=== PATIENT | female | born 1985 | race Caucasian/White ===

== ENCOUNTER 2016-11-17 21:17 | Emergency (ER) | payer MEDICAID ==
[~2016-11-17] VITALS: Ht 165.1 cm; Wt 88.5 kg
[~2016-11-17 21:17] MED LIST: CEPH-507 PO; DayQuil; Ibuprofen; LVT.1T PO; ONDA4TAB8 SL
--- OUTSIDE RECORDS SUMMARY | 2016-11-17 21:23 | XMS REPORT | Continuity of Care Document ---
Author Author [facility] Organization [facility] Address Unknown Phone Unavailable Care Team Providers Care Wordpress Developer Name Role Phone NO, LOCAL PHYSICIAN PCP Unavailable Insurance Providers Payer Name Policy Number Subscriber Name Relationship [facility] [employer] [id number] Celia Roca 18 Self / Same As Patient Advance Directives Directive Response Recorded Date/Time Advance Directives No 05/08/16 5:17pm Resuscitation Status Full Code 05/08/16 5:17pm Chief Complaint and Reason for Visit Chief Complaint Orthopedic Problems Reason for Visit [id number] Fall Problems Active Problems Medical Problem Onset Date Status Cervical sprain Unknown Acute Fall Unknown Acute Pain, chest wall Unknown Acute Medications Current Home Medications Medication Dose Units Route Directions Days/Qty Instructions Start Date Levothyroxine Sodium (Levothroid) 100 Mcg 100 Mcg Oral Daily Social History Social History Problem Response Recorded Date/Time Alcohol Use Denies Use 01/19/2014 8:41am Recreational Drug Use No 01/19/2014 8:41am Recent Foreign Travel No 05/08/2016 5:17pm Recent Infectious Disease Exposure No 05/08/2016 5:17pm Smoking Status Never a Smoker 05/08/2016 5:17pm Recent Hopitalizations No 05/08/2016 5:17pm Query Response Start Date Stop Date Smoking Status Never a Smoker Hospital Discharge Instructions No hospital discharge instructions. Plan of Care Discharge Date 05/08/16 6:35pm Disposition 01 HOME, SELF-CARE Condition at Discharge Improved Instructions/Education Provided Cervical Sprain (ED) Prescriptions See Medication Section Referrals NO,LOCAL PHYSICIAN - Primary Care Physician Functional Status No functional status results. Allergies, Adverse Reactions, Alerts No known allergies. Immunizations No immunization records. Vital Signs Acute Vital Signs Vital Response Date/Time Temperature (Fahrenheit) 98.6 degrees F (97.6 - 99.5) 05/08/2016 6:35pm Temperature (Calculated Celsius) 37.52839 degrees C (36.4 - 37.5) 05/08/2016 6:35pm Temperature Source Temporal 05/08/2016 6:35pm Pulse Rate (adult) 69 bpm (60 - 90) 05/08/2016 6:35pm Respiratory Rate 18 bpm (12 - 24) 05/08/2016 6:35pm O2 Sat by Pulse Oximetry 99 % (88 - 100) 05/08/2016 6:35pm Blood Pressure 113/71 mm Hg 05/08/2016 6:35pm Blood Pressure Mean 72 mm Hg 05/08/2016 5:17pm Pain Numeric Pain Scale 10-Worst Possible Pain 05/08/2016 5:17pm Height (Feet) 5 feet 05/08/2016 5:17pm Height (Inches) 5 inches 05/08/2016 5:17pm Height (Calculated Centimeters) 165.000463 cm 05/08/2016 5:17pm Weight (Pounds) 195 pounds 05/08/2016 5:17pm Weight (Calculated Kilograms) 88.747194 kilograms 05/08/2016 5:17pm Capillary Refill Capillary Refill Less Than 3 Seconds 05/08/2016 5:17pm Height 5 ft 5 in Weight 195 lb Body Mass Index 32.4 kg/m^2 Results No known relevant diagnostic tests, laboratory data and/or discharge summary. Procedures No known history of procedures. Encounters Encounter Location Arrival/Admit Date Discharge/Depart Date Attending Provider Departed Emergency Room [facility] 05/08/16 4:42pm 05/08 6:35pm MIGUE ORTIZ APRN Recent Diagnosis
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
[2016-11-17 21:39] LABS: BASOPHILS # (AUTO) 0.1 10^3/uL (0.0-0.1); BASOPHILS % (AUTO) 1 % (0-10); EOSINOPHILS # (AUTO) 0.6 10^3/uL (0.0-0.3); EOSINOPHILS % (AUTO) 6 % (0-10); LYMPHOCYTES # (AUTO) 3.8 X 10^3 (1.0-4.0); LYMPHOCYTES % (AUTO) 37 % (12-44); MEAN CORPUSCULAR HEMOGLOBIN 28 PG (25-34); MEAN CORPUSCULAR HGB CONC 33 G/DL (32-36); MEAN CORPUSCULAR VOLUME 86 FL (80-99); MEAN PLATELET VOLUME 10.7 FL (7.4-10.4); MONOCYTES # (AUTO) 0.6 X 10^3 (0.0-1.0); MONOCYTES % (AUTO) 6 % (0-12); NEUTROPHILS # (AUTO) 5.2 X 10^3 (1.8-7.8); NEUTROPHILS % (AUTO) 51 % (42-75); PLATELET COUNT 288 10^3/uL (130-400); RED BLOOD COUNT 4.61 10^6/uL (4.35-5.85); RED CELL DISTRIBUTION WIDTH 14.7 % (10.0-14.5); WHITE BLOOD COUNT 10.2 10^3/uL (4.3-11.0)
[2016-11-17 21:44] LABS: BILIRUBIN,URINE NEGATIVE (NEGATIVE); KETONES,URINE NEGATIVE (NEGATIVE); LEUKOCYTE ESTERASE ,URINE 1+ (NEGATIVE); NITRITE,URINE NEGATIVE (NEGATIVE); PH,URINE 6 (5-9); PROTEIN,URINE NEGATIVE (NEGATIVE); UROBILINOGEN,URINE NORMAL (NORMAL)
[2016-11-17 21:55] LABS: SQUAMOUS EPITHELIAL CELL,UR 25-50 /HPF
[2016-11-17 21:55] LABS: ALANINE AMINOTRANSFERASE 15 U/L (0-55); ALBUMIN 4.1 G/DL (3.2-4.5); ANION GAP 11 MMOL/L (5-14); ASPARTATE AMINO TRANSFERASE 21 U/L (5-34); BILIRUBIN,TOTAL 0.2 MG/DL (0.1-1.0); BLOOD UREA NITROGEN 8 MG/DL (7-18); BUN/CREATININE RATIO 11; CALCIUM 9.2 MG/DL (8.5-10.1); CARBON DIOXIDE 23 MMOL/L (21-32); CHLORIDE 105 MMOL/L (98-107); CREATININE SERUM 0.71 MG/DL (0.60-1.30); GFR ESTIMATED > 60; GLUCOSE 90 MG/DL (70-105); POTASSIUM 3.8 MMOL/L (3.6-5.0); SODIUM 139 MMOL/L (135-145); TOTAL PROTEIN 6.9 G/DL (6.4-8.2)
[2016-11-17 22:01] LABS: TROPONIN I < 0.30 NG/ML (<0.30)
[2016-11-17 22:22] VITALS: BP 108/72
== END 2016-11-17 22:21 | disposition home or self-care (01) ==
LOC: EDUNIT# 21:17 → ER 21:19
DX: R55 Syncope and collapse (principal); R06.00 Dyspnea, unspecified; R07.9 Chest pain, unspecified; I10 Essential (primary) hypertension; Z79.899 Other long term (current) drug therapy
CPT/HCPCS: 36415; 80053; 80306; 81000; 83880; 84484; 84703; 85025; 85379; 93005

== ENCOUNTER 2019-04-10 15:57 | Emergency (ER) | payer MEDICAID ==
[~2019-04-10] VITALS: Ht 165.1 cm; Wt 95.3 kg
--- OUTSIDE RECORDS SUMMARY | 2019-04-10 16:31 | XMS REPORT ---
Author COLLEEN Cuevas Organization [employer] Address Unknown Phone Unavailable Care Team Providers Care Quality Assurance Supervisor Final Name Role Phone COLLEEN HALL CP Unavailable Allergies No Known Allergies Problems No Known Problems Medications No Known Medications Vital Signs Date/Time: January 22, 2016 Cardiac Monitoring Heart Rate 72 bpm Temperature 98.1 F Weight 190 lbs Results No Known Results Summary Purpose [employer] Submission
--- OUTSIDE RECORDS SUMMARY | 2019-04-10 16:31 | XMS REPORT ---
Author Author SHAHRZAD [place] Organization [facility] Address [address] [place] [address] Care Team Providers Care Engineering Recruiter Name Role Phone RUSS NJNETTE Unavailable PROBLEMS Type Condition ICD9-CM Code [id number] Code Onset Dates Condition Status SNOMED Code Problem Hypothyroid E03.9 Active 94536775 Problem Heart murmur R01.1 Active 58878327 Problem Other headache syndrome G44.89 Active 969940953 Problem Other constipation K59.09 Active 843821736 Problem Gastroesophageal reflux disease without esophagitis K21.9 Active 122954907 Problem Acute upper respiratory infection, unspecified J06.9 Active 275198695 Problem History of gestational diabetes Z86.32 Active 973703893 Problem Weight gain R63.5 Active 3946963 ALLERGIES Substance Reaction Event Type Date Status N.K.D.A. Unknown Non Drug Allergy Sep, Unknown SOCIAL HISTORY No smoking Hx information available PLAN OF CARE Activity Details Follow Up 3 Months Reason: VITAL SIGNS Height 65 in 2016-09-30 Weight 208.5 lbs 2016-09-30 Temperature 98.1 degrees Fahrenheit 2016-09-30 Heart Rate 76 bpm 2016-09-30 Respiratory Rate 18 2016-09-30 BMI 34.69 kg/m2 2016-09-30 Blood pressure systolic 112 mmHg 2016-09-30 Blood pressure diastolic 70 mmHg 2016-09-30 MEDICATIONS Medication Instructions Dosage Frequency Start Date End Date Duration Status Protonix 40 mg Orally Once a day 1 tablet 24h Sep, 30 day(s) Active MiraLax 17 gm/dose Orally Once a day one capful 24h Sep, Active Topamax 25 MG Orally Twice a day 1 tablet 12h Sep, 30 day(s) Active RESULTS Name Result Date Reference Range A1C (IN HOUSE) 2016-09-30 A1C IN HOUSE 5.7 4.3 - 5.6 % Previous A1c N/A Lot [id number] Exp date 06/2018 CBC 2016-09-30 WBC 7.1 3.4-10.8 RBC 4.64 3.77-5.28 Hemoglobin 12.9 11.1-15.9 Hematocrit 40.1 34.0-46.6 MCV 86 79-97 MCH 27.8 26.6-33.0 MCHC 32.2 31.5-35.7 RDW 14.4 12.3-15.4 Platelets 409 150-379 Neutrophils 53 Lymphs 38 Monocytes 6 Eos 3 Basos 0 Immature Cells Neutrophils (Absolute) 3.7 1.4-7.0 Lymphs (Absolute) 2.7 0.7-3.1 Monocytes(Absolute) 0.4 0.1-0.9 Eos (Absolute) 0.2 0.0-0.4 Baso (Absolute) 0.0 0.0-0.2 Immature Granulocytes 0 Immature Grans (Abs) 0.0 0.0-0.1 NR Hematology Comments: LIPID PANEL 2016-09-30 Cholesterol, Total 197 100-199 Triglycerides 104 0-149 HDL Cholesterol 56 >39 VLDL Cholesterol Prasanna 21 5-40 LDL Cholesterol Calc 120 0-99 CMP 2016-09-30 Glucose, Serum 95 65-99 BUN 11 6-20 Creatinine, Serum 0.68 0.57-1.00 eGFR If NonAfricn Am 119 >59 eGFR If Africn Am 138 >59 BUN/Creatinine Ratio 16 8-20 Sodium, Serum 143 134-144 Potassium, Serum 4.3 3.5-5.2 Chloride, Serum 104 96-106 Carbon Dioxide, Total 26 18-29 Calcium, Serum 9.3 8.7-10.2 Protein, Total, Serum 6.8 6.0-8.5 Albumin, Serum 4.1 3.5-5.5 Globulin, Total 2.7 1.5-4.5 A/G Ratio 1.5 1.1-2.5 Bilirubin, Total 0.2 0.0-1.2 Alkaline Phosphatase, S 59 39-117 AST (SGOT) 19 0-40 ALT (SGPT) 11 0-32 ESR/SED RATE (IN HOUSE) 2016-09-30 SED/ESR RATE 37 mm/hr Lot # [id number] Exp Date 24 Nov 2016 0 - 20 mm PROCEDURES Procedure Date Ordered Related Diagnosis Body Site EKG, TRACING (IN-HOUSE) 2016-09-30 Normal LAB NOT BILLED BY [facility] Sep 30, 2016 VENIPUNCT, ROUTINE* Sep 30, 2016 ELECTROCARDIOGRAM, TRACING Sep 30, 2016 RBC SED RATE, NONAUTOMATED Sep 30, 2016 Office Visit, Est Pt., Level 4 Sep 30, 2016 GLYCATED HEMOGLOBIN TEST Sep 30, 2016 IMMUNIZATIONS No Known Immunizations
--- OUTSIDE RECORDS SUMMARY | 2019-04-10 16:31 | XMS REPORT ---
Author Author RICHARD VALDEZ Organization [facility] Address [address] [place] [address] Care Team Providers Care Machine Packaging Technician Name Role Phone RICHARD VALDEZ Unavailable PROBLEMS Type Condition ICD9-CM Code [id number] Code Onset Dates Condition Status SNOMED Code Problem Hypothyroid E03.9 Active 13073812 Problem Heart murmur R01.1 Active 46103418 Problem Other headache syndrome G44.89 Active 718053382 Problem Gastroesophageal reflux disease without esophagitis K21.9 Active 921363530 Problem Other constipation K59.09 Active 138417421 Problem Acute upper respiratory infection, unspecified J06.9 Active 023572343 Problem History of gestational diabetes Z86.32 Active 431564789 Problem Weight gain R63.5 Active 1471164 ALLERGIES Substance Reaction Event Type Date Status N.K.D.A. Unknown Non Drug Allergy Aug, Unknown SOCIAL HISTORY No smoking Hx information available PLAN OF CARE Activity Details Follow Up if not improving with PCP or reg follow up Reason: VITAL SIGNS Height 65 in 2016-09-10 Weight 212.0 lbs 2016-09-10 Temperature 98.8 degrees Fahrenheit 2016-09-10 Heart Rate 90 bpm 2016-09-10 Respiratory Rate 20 2016-09-10 Oximetry 98 % 2016-09-10 BMI 35.27 kg/m2 2016-09-10 Blood pressure systolic 110 mmHg 2016-09-10 Blood pressure diastolic 76 mmHg 2016-09-10 MEDICATIONS Medication Instructions Dosage Frequency Start Date End Date Duration Status Ondansetron 8 MG Orally prn 1 tablet Aug, Active Cephalexin 500 MG Orally 4 times a day 1 capsule 6h Aug, Active RESULTS No Results PROCEDURES Procedure Date Ordered Related Diagnosis Body Site MEASURE BLOOD OXYGEN LEVEL Sep 10, 2016 Office Visit, Est Pt., Level 3 Sep 10, 2016 IMMUNIZATIONS No Known Immunizations
--- OUTSIDE RECORDS SUMMARY | 2019-04-10 16:31 | XMS REPORT ---
Author SHAHRZAD Garduno [facility] [employer] Address Unknown Phone Unavailable Care Team Providers Care Returned Telephone Equipment Appraiser Name Role Phone SHAHRZAD [place] Unavailable Allergies No Known Allergies Problems Problem Type Condition Code Onset Dates Condition Status Problem Heart murmur R01.1 Active Assessment Encounter for test, result unknown Z32.00 Active Problem Hypothyroid E03.9 Active Medications No Known Medications Procedures Procedure Coding System Code Date [facility] CPT-4 NOBLL Apr 30, 2016 VENIPUNCT, ROUTINE* CPT-4 69154 Apr 30, 2016 CHORIONIC GONADOTROPIN ASSAY CPT-4 76347 Apr 30, 2016 Results No Known Results Summary Purpose [employer] Submission
--- OUTSIDE RECORDS SUMMARY | 2019-04-10 16:31 | XMS REPORT ---
Author Author VÍCTOR LEE [facility] Address [address] [place] [address] Care Team Providers Care Collateral Clerk Name Role Phone VÍCTOR LEE Unavailable PROBLEMS Type Condition ICD9-CM Code EFO06-CQ Code Onset Dates Condition Status SNOMED Code Problem Heart murmur R01.1 Active 553751051 Problem Hypothyroid E03.9 Active 67061961 Problem Other constipation K59.09 Active 913779912 Problem Other headache syndrome G44.89 Active 209741422 Problem Acute upper respiratory infection, unspecified J06.9 Active 278596924 Problem Gastroesophageal reflux disease without esophagitis K21.9 Active 855144029 Problem Weight gain R63.5 Active 8213821 Problem History of gestational diabetes Z86.32 Active 194049156 ALLERGIES No Information ENCOUNTERS Encounter Location Date Diagnosis [facility] [address] [place] [address] Nov, Pain of right thumb M79.[address] [address] Nov, Pain of right thumb M79.[address] [address] Oct, [address] [address] Oct, Rash R21 ; Non-intractable vomiting with nausea, unspecified vomiting type R11.2 and Hypothyroid E03.9 [facility] [address] [address] Oct, [facility] [address] [address] Sep, [facility] [address] [address] Sep, [place] [address] [address] Sep, Heart murmur R01.1 ; Other headache syndrome G44.89 ; Gastroesophageal reflux disease without esophagitis K21.9 ; Weight gain R63.5 ; History of gestational diabetes Z86.32 and Other constipation K59.[address] [address] Aug, Acute upper respiratory infection, unspecified J06.9 [place] [address] [address] Jul, [address] [address] Jun, Encounter for test, result unknown Z32.[address] [address] Apr, Encounter for test, result unknown Z32.[address] [address] Mar, Irregular bleeding N92.[address] [address] Feb, Nexplanon removal Z30.49 [facility] [address] [id number] January, Dental examination Z01.[address] [address] January, Wellness examination Z00.00 ; Hypothyroid E03.9 and Heart murmur R01.1 [facility] [address] [address] Dec, [place] [address] [address] Nov, [address] [place] [address] Nov, IMMUNIZATIONS No Known Immunizations SOCIAL HISTORY Never Assessed REASON FOR VISIT Xray (walk-in), Neda Arias (Renée) PLAN OF CARE VITAL SIGNS MEDICATIONS Unknown Medications RESULTS Name Result Date Reference Range Xray : Finger(s), Right 2 views (IN HOUSE) 2018-12-02 PROCEDURES Procedure Date Ordered Result Body Site X-RAY EXAM OF FINGER(S) December 02, 2018 INSTRUCTIONS MEDICATIONS ADMINISTERED No Known Medications MEDICAL (GENERAL) HISTORY Type Description Date Medical History Hypothyroid - has been out of med for the last year Medical History Heart Murmur Surgical History 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
--- OUTSIDE RECORDS SUMMARY | 2019-04-10 16:31 | XMS REPORT ---
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 Active 673580433 Problem Acute upper respiratory infection, unspecified J06.9 Active 298877409 Problem Gastroesophageal reflux disease without esophagitis K21.9 Active 934008503 Problem Weight gain R63.5 Active 9259322 Problem History of gestational diabetes Z86.32 Active [id number] ALLERGIES No Known Allergies ENCOUNTERS Encounter Location Date Diagnosis [facility] [address] [place] [address] Nov, Pain of right thumb M79.[address] [address] Nov, Pain of right thumb M79.[address] [address] Oct, [address] [address] Oct, Rash R21 ; Non-intractable vomiting with nausea, unspecified vomiting type R11.2 and Hypothyroid E03.9 [facility] [address] [address] Oct, [facility] [address] [address] Sep, [facility] [address] [place] [address] Sep, [place] [address] [address] Sep, Heart murmur R01.1 ; Other headache syndrome G44.89 ; Gastroesophageal reflux disease without esophagitis K21.9 ; Weight gain R63.5 ; History of gestational diabetes Z86.32 and Other constipation K59.[address] [address] Aug, Acute upper respiratory infection, unspecified J06.9 [place] [address] [address] Jul, [address] [address] Jun, Encounter for test, result unknown Z32.[address] [address] Apr, Encounter for test, result unknown Z32.00 [place] [address] [address] Mar, Irregular bleeding N92.[address] [address] Feb, Nexplanon removal Z30.49 [facility] [address] [id number] January, Dental examination Z01.[address] [address] January, Wellness examination Z00.00 ; Hypothyroid E03.9 and Heart murmur R01.1 [facility] [address] [address] Dec, [place] [address] [address] Nov, [address] [place] [address] Nov, IMMUNIZATIONS No Known Immunizations SOCIAL HISTORY Never Assessed REASON FOR VISIT New provider visit, Rt thumb pain.[facility] PLAN OF CARE Activity Details Follow Up 1 Year with well woman Reason: VITAL SIGNS Height 65 in 2018-11-29 Weight 204 lbs 2018-11-29 Temperature 99.2 degrees Fahrenheit 2018-11-29 Heart Rate 72 bpm 2018-11-29 Respiratory Rate 18 2018-11-29 BMI 33.94 kg/m2 2018-11-29 Blood pressure systolic 108 mmHg 2018-11-29 Blood pressure diastolic 80 mmHg 2018-11-29 MEDICATIONS Medication Instructions Dosage Frequency Start Date End Date Duration Status Protonix 40 MG Orally Once a day 1 tablet 24h Oct, 30 day(s) Active Ondansetron 4 MG Orally every 4 hrs 1 tablet on the tongue and allow to dissolve as needed 4h Oct, Active RESULTS No Results PROCEDURES No Known procedures INSTRUCTIONS MEDICATIONS ADMINISTERED No Known Medications MEDICAL (GENERAL) HISTORY Type Description Date Medical History Hypothyroid - has been out of med for the last year Medical History Heart Murmur Surgical History 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
--- OUTSIDE RECORDS SUMMARY | 2019-04-10 16:31 | XMS REPORT ---
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 Active 623360841 Problem Other constipation K59.09 Active 624264338 Problem Gastroesophageal reflux disease without esophagitis K21.9 Active 151625994 Problem Acute upper respiratory infection, unspecified J06.9 Active 051903557 Problem History of gestational diabetes Z86.32 Active 218642011 Problem Weight gain R63.5 Active 3806185 ALLERGIES No Information SOCIAL HISTORY Never Assessed PLAN OF CARE VITAL SIGNS MEDICATIONS Unknown Medications RESULTS No Results PROCEDURES No Known procedures IMMUNIZATIONS No Known Immunizations MEDICAL (GENERAL) HISTORY Type Description Date Medical History Hypothyroid Medical History Heart Murmur Surgical History 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
--- OUTSIDE RECORDS SUMMARY | 2019-04-10 16:32 | XMS REPORT ---
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
--- OUTSIDE RECORDS SUMMARY | 2019-04-10 16:32 | XMS REPORT | Continuity of Care Document ---
Author Organization Unknown Address Unknown Allergies Active Description Code Type Severity Reaction Onset Reported/Identified Relationship to Patient Clinical Status Yes No Known Drug Allergies [id number] Drug Allergy Unknown N/A 05/08/2016 Medications There is no data. Problems Date Dx Coded Attending Type Code Diagnosis Diagnosed By 01/19/2014 RISHI BURDICK MD Ot 719.47 JOINT PAIN-ANKLE 01/19/2014 RISHI BURDICK MD Ot 845.00 SPRAIN OF ANKLE NOS 01/19/2014 RISHI BURDICK MD Ot E000.8 OTHER EXTERNAL CAUSE STATUS 01/19/2014 RISHI BURDICK MD Ot E849.[address] NEC 01/19/2014 RISHI BURDICK MD Ot E885.9 FALL FROM SLIPPING, TRIPPING, OR STUMBLI 04/18/2016 BRUCE ZAPATA FACC, MAURY FACP CCDS Ot 278.00 OBESITY, NOS 04/18/2016 BRUCE ZAPATA FACC, MAURY FACP CCDS Ot 786.09 RESPIRATORY ABNORM NEC 04/18/2016 BRUCE ZAPATA FACC, ALI FACP CCDS Ot 786.50 CHEST PAIN NOS 04/18/2016 MIGUE ORTIZ CERAMICS MACHINE OPERATOR Ot R07.89 OTHER CHEST PAIN 04/20/2016 MIGEU ORTIZ CERAMICS MACHINE OPERATOR Ot R07.89 OTHER CHEST PAIN 05/08/2016 BRUCE ZAPATA FACC, MAURY FACP CCDS Ot 278.00 OBESITY, NOS 05/08/2016 BRUCE ZAPATA FACC, ALI FACP CCDS Ot 786.09 RESPIRATORY ABNORM NEC 05/08/2016 BRUCE ZAPATA FACC, ALI FACP CCDS Ot 786.50 CHEST PAIN NOS 05/08/2016 BRUCE ZAPATA FACC, ALI FACP CCDS Ot 278.00 OBESITY, NOS 05/08/2016 BRUCE ZAPATA FACC, ALI FACP CCDS Ot 786.09 RESPIRATORY ABNORM NEC 05/08/2016 BRUCE ZAPATA FACC, ALI FACP CCDS Ot 786.50 CHEST PAIN NOS 05/08/2016 MIGUE ORTIZ CERAMICS MACHINE OPERATOR Ot S16.1XXA STRAIN OF MUSCLE, FASCIA AND TENDON AT N 05/08/2016 MIGUE ORTIZ APRN Ot S59.911A UNSPECIFIED INJURY OF RIGHT FOREARM, INI 05/08/2016 MIGUE ORTIZ APRN Ot S90.921A UNSPECIFIED SUPERFICIAL INJURY OF RIGHT 05/08/2016 MIGUE ORTIZ APRN Ot W01.0XXA FALL SAME LEV FROM SLIP/TRIP W/O STRIKE 05/08/2016 MIGUE ORTIZ CERAMICS MACHINE OPERATOR Ot Y92.[address] [facility] ([facility] 05/08/2016 MIGUE ORTIZ APRN Ot Y99.8 OTHER EXTERNAL CAUSE STATUS 05/08/2016 BRUCE ZAPATA FACC, ALI FACP CCDS Ot 278.00 OBESITY, NOS 05/08/2016 BRUCE ZAPATA FACC, ALI FACP CCDS Ot 786.09 RESPIRATORY ABNORM NEC 05/08/2016 BRUCE ZAPATA FACC, ALI FACP CCDS Ot 786.50 CHEST PAIN NOS 05/11/2016 MIGUE ORTIZ CERAMICS MACHINE OPERATOR Ot S16.1XXA STRAIN OF MUSCLE, FASCIA AND TENDON AT N 05/11/2016 MIGUE ORTIZ APRN Ot S59.911A UNSPECIFIED INJURY OF RIGHT FOREARM, INI 05/11/2016 MIGUE ORTIZ APRN Ot S90.921A UNSPECIFIED SUPERFICIAL INJURY OF RIGHT 05/11/2016 MIGUE ORTIZ APRN Ot W01.0XXA FALL SAME LEV FROM SLIP/TRIP W/O STRIKE 05/11/2016 MIGUE ORTIZ APRN Ot Y92.[address] IN [facility] 05/11/2016 MIGUE ORTIZ APRN Ot Y99.8 OTHER EXTERNAL CAUSE STATUS 05/12/2016 IMGUE ORTIZ CERAMICS MACHINE OPERATOR Ot S16.1XXA STRAIN OF MUSCLE, FASCIA AND TENDON AT N 05/12/2016 MIGUE ORTIZ APRN Ot S59.911A UNSPECIFIED INJURY OF RIGHT FOREARM, INI 05/12/2016 MIGUE ORTIZ APRN Ot S90.921A UNSPECIFIED SUPERFICIAL INJURY OF RIGHT 05/12/2016 MIGUE ORTIZ CERAMICS MACHINE OPERATOR Ot W01.0XXA FALL SAME LEV FROM SLIP/TRIP W/O STRIKE 05/12/2016 MIGUE ORTIZ CERAMICS MACHINE OPERATOR Ot Y92.[address] [facility] ([facility] 05/12/2016 MIGUE ORTIZ CERAMICS MACHINE OPERATOR Ot Y99.8 OTHER EXTERNAL CAUSE STATUS 05/28/2016 MIGUE ORTIZ CERAMICS MACHINE OPERATOR Ot S16.1XXA STRAIN OF MUSCLE, FASCIA AND TENDON AT N 05/28/2016 MIGUE ORTIZ APRN Ot S59.911A UNSPECIFIED INJURY OF RIGHT FOREARM, INI 05/28/2016 MIGUE ORTIZ APRN Ot S90.921A UNSPECIFIED SUPERFICIAL INJURY OF RIGHT 05/28/2016 MIGUE ORTIZ CERAMICS MACHINE OPERATOR Ot W01.0XXA FALL SAME LEV FROM SLIP/TRIP W/O STRIKE 05/28/2016 MIGUE ORTIZ APRN Ot Y92.[address] IN [facility] ([facility] 05/28/2016 MIGUE ORTIZ APRN Ot Y99.8 OTHER EXTERNAL CAUSE STATUS 09/09/2016 BRUCE ZAPATA FACC, ALI FACP CCDS Ot 278.00 OBESITY, NOS 09/09/2016 BRUCE ZAPATA FACC, ALI FACP CCDS Ot 786.09 RESPIRATORY ABNORM NEC 09/09/2016 BRUCE ZAPATA FACC, ALI FACP CCDS Ot 786.50 CHEST PAIN NOS 09/09/2016 FARHANA CUBA MD T Ot J02.9 ACUTE PHARYNGITIS, UNSPECIFIED 09/09/2016 FARHANA CUBA MD T Ot J11.1 FLU DUE TO UNIDENTIFIED INFLUENZA VIRUS 09/09/2016 FARHANA CUBA MD T Ot N39.0 URINARY TRACT INFECTION, SITE NOT SPECIF 09/09/2016 FARHANA CUBA MD T Ot R05 COUGH 09/10/2016 FARHANA CUBA MD T Ot J02.9 ACUTE PHARYNGITIS, UNSPECIFIED 09/10/2016 FARHANA CUBA MD T Ot J11.1 FLU DUE TO UNIDENTIFIED INFLUENZA VIRUS 09/10/2016 FARHANA CUBA MD T Ot N39.0 URINARY TRACT INFECTION, SITE NOT SPECIF 09/10/2016 FARHANA CUBA MD T Ot R05 COUGH 09/16/2016 BRUCE ZAPATA FACC, ALI FACP CCDS Ot 278.00 OBESITY, NOS 09/16/2016 BRUCE GONZALESC, ALI FACP CCDS Ot 786.09 RESPIRATORY ABNORM NEC 09/16/2016 BRUCE ZAPATA FAC, [facility] FACP CCDS Ot 786.50 CHEST PAIN NOS 11/17/2016 CÉSAR AGUIRRE MD Ot I10 ESSENTIAL (PRIMARY) HYPERTENSION 11/17/2016 CÉSAR AGUIRRE MD Ot R06.00 DYSPNEA, UNSPECIFIED 11/17/2016 CÉSAR AGUIRRE MD Ot R07.9 CHEST PAIN, UNSPECIFIED 11/17/2016 CÉSAR AGUIRRE MD Ot R55 SYNCOPE AND COLLAPSE 11/17/2016 CÉSAR AGUIRRE MD Ot Z79.899 OTHER SNF (CURRENT) DRUG THERAPY 11/17/2016 BRUCE ZAPATA [facility], [facility] FACP CCDS Ot 278.00 OBESITY, NOS 11/17/2016 BRUCE ZAPATA [facility] CCD[facility] Ot 786.09 RESPIRATORY ABNORM NEC 11/17/2016 BRUCE ZAPATA FACC, [facility] FACP CCDS Ot 786.50 CHEST PAIN NOS 11/23/2016 CÉSAR AGUIRRE MD Ot I10 ESSENTIAL (PRIMARY) HYPERTENSION 11/23/2016 CÉSAR AGUIRRE MD Ot R06.00 DYSPNEA, UNSPECIFIED 11/23/2016 CÉSAR AGUIRRE MD Ot R07.9 CHEST PAIN, UNSPECIFIED 11/23/2016 CÉSAR AGUIRRE MD, Ot R55 SYNCOPE AND COLLAPSE 11/23/2016 CÉSAR AGUIRRE MD Ot Z79.899 OTHER MENTAL HEALTH PROGRAM SPECIALIST (CURRENT) DRUG THERAPY Procedures Code Description Performed By Performed On Cardiolog [facility] 12/26/2013 Results Test Result Range Streptococcus pyogenes antigen detection - 09/09/16 19:00 Streptococcus pyogenes antigen detection NEGATIVE NEGATIVE Bacterial throat culture - 09/09/16 19:00 Bacterial throat culture NBS NRG Complete blood count (CBC) with automated white blood cell (WBC) differential - 09/09/16 19:17 Blood leukocytes automated count (number/volume) 13.2 10*3/uL 4.3-11.0 Blood erythrocytes automated count (number/volume) 4.50 10*6/uL 4.35-5.85 Venous blood hemoglobin measurement (mass/volume) 12.8 g/dL 11.5-16.0 Blood hematocrit (volume fraction) 39 % 35-52 Automated erythrocyte mean corpuscular volume 87 [foz_us] 80-99 Automated erythrocyte mean corpuscular hemoglobin (mass per erythrocyte) 28 pg 25-34 Automated erythrocyte mean corpuscular hemoglobin concentration measurement (mass/volume) 33 g/dL 32-36 Automated erythrocyte distribution width ratio 14.9 % 10.0- 14.5 Automated blood platelet count (count/volume) 277 10*3/uL 130-400 Automated blood platelet mean volume measurement 10.7 [[facility]] 7.4-10.4 Automated blood neutrophils/100 leukocytes 80 % 42-75 Automated blood lymphocytes/100 leukocytes 8 % 12-44 Blood monocytes/100 leukocytes 6 % 0-12 Automated blood eosinophils/100 leukocytes 5 % 0-10 Automated blood basophils/100 leukocytes 0 % 0-10 Blood neutrophils automated count (number/volume) 10.6 10*3 1.8-7.8 Blood lymphocytes automated count (number/volume) 1.1 10*3 1.0-4.0 Blood monocytes automated count (number/volume) 0.8 10*3 0.0- 1.0 Automated eosinophil count 0.7 10*3/uL 0.0-0.3 Automated blood basophil count (count/volume) 0.0 10*3/uL 0.0-0.1 Serum or plasma choriogonadotropin ( test) detection - 09/09/16 19:17 Serum or plasma choriogonadotropin ( test) detection NEGATIVE NEGATIVE Serum heterophile antibody titer - 09/09/16 19:17 Serum heterophile antibody titer NEGATIVE NEGATIVE Influenza virus A and B antigen detection - 09/09/16 19:17 FLU RESULT NEGATIVE FOR INFLUENZA A AND B ANTIGENS BY [facility] Comprehensive metabolic panel - 09/09/16 19:17 Serum or plasma sodium measurement (moles/volume) 135 mmol/L 135-145 Serum or plasma potassium measurement (moles/volume) 3.4 mmol/L 3.6-5.0 Serum or plasma chloride measurement (moles/volume) 108 mmol/L 98-107 Carbon dioxide 18 mmol/L 21-32 Serum or plasma anion gap determination (moles/volume) 9 mmol/L 5-14 Serum or plasma urea nitrogen measurement (mass/volume) 8 mg/dL 7-18 Serum or plasma creatinine measurement (mass/volume) 0.67 mg/dL 0.60-1.30 Serum or plasma urea nitrogen/creatinine mass ratio 12 NRG Serum or plasma creatinine measurement with calculation of estimated glomerular filtration rate > NRG Serum or plasma glucose measurement (mass/volume) 109 mg/dL 70-105 Serum or plasma calcium measurement (mass/volume) 8.2 mg/dL 8.5-10.1 Serum or plasma total bilirubin measurement (mass/volume) 0.4 mg/dL 0.1-1.0 Serum or plasma alkaline phosphatase measurement (enzymatic activity/volume) 53 U/L 40-136 Serum or plasma aspartate aminotransferase measurement (enzymatic activity/volume) 38 U/L 5-34 Serum or plasma alanine aminotransferase measurement (enzymatic activity/volume) 36 U/L 0-55 Serum or plasma protein measurement (mass/volume) 6.3 g/dL 6.4-8.2 Serum or plasma albumin measurement (mass/volume) 3.7 g/dL 3.2-4.5 Complete urinalysis with reflex to culture - 09/09/16 19:23 Urine color determination YELLOW NRG Urine clarity determination CLEAR NRG Urine pH measurement by test strip 6 5-9 Specific gravity of urine by test strip 1.010 1.016-1.022 Urine protein assay by test strip, semi-quantitative NEGATIVE NEGATIVE Urine glucose detection by automated test strip NEGATIVE NEGATIVE Erythrocytes detection in urine sediment by light microscopy 1+ NEGATIVE Urine ketones detection by automated test strip NEGATIVE NEGATIVE Urine nitrite detection by test strip NEGATIVE NEGATIVE Urine total bilirubin detection by test strip NEGATIVE NEGATIVE Urine urobilinogen measurement by automated test strip (mass/volume) NORMAL NORMAL Urine leukocyte esterase detection by dipstick 2+ NEGATIVE Automated urine sediment erythrocyte count by microscopy (number/high power field) [HPF] NRG Automated urine sediment leukocyte count by microscopy (number/high power field) [HPF] NRG Bacteria detection in urine sediment by light microscopy FEW NRG Squamous epithelial cells detection in urine sediment by light microscopy 5-10 NRG Crystals detection in urine sediment by light microscopy NONE NRG Casts detection in urine sediment by light microscopy NONE NRG Mucus detection in urine sediment by light microscopy NEGATIVE NRG Complete urinalysis with reflex to culture YES NRG Bacterial urine culture - 09/09/16 19:23 URINE CULTURE RESULTS <10,000/ML NRG Complete blood count (CBC) with automated white blood cell (WBC) differential - 11/17/16 21:25 Blood leukocytes automated count (number/volume) 10.2 10*3/uL 4.3-11.0 Blood erythrocytes automated count (number/volume) 4.61 10*6/uL 4.35-5.85 Venous blood hemoglobin measurement (mass/volume) 13.1 g/dL 11.5-16.0 Blood hematocrit (volume fraction) 40 % 35-52 Automated erythrocyte mean corpuscular volume 86 [foz_us] 80-99 Automated erythrocyte mean corpuscular hemoglobin (mass per erythrocyte) 28 pg 25-34 Automated erythrocyte mean corpuscular hemoglobin concentration measurement (mass/volume) 33 g/dL 32-36 Automated erythrocyte distribution width ratio 14.7 % 10.0- 14.5 Automated blood platelet count (count/volume) 288 10*3/uL 130-400 Automated blood platelet mean volume measurement 10.7 [foz_us] 7.4-10.4 Automated blood neutrophils/100 leukocytes 51 % 42-75 Automated blood lymphocytes/100 leukocytes 37 % 12-44 Blood monocytes/100 leukocytes 6 % 0-12 Automated blood eosinophils/100 leukocytes 6 % 0-10 Automated blood basophils/100 leukocytes 1 % 0-10 Blood neutrophils automated count (number/volume) 5.2 10*3 1.8-7.8 Blood lymphocytes automated count (number/volume) 3.8 10*3 1.0-4.0 Blood monocytes automated count (number/volume) 0.6 10*3 0.0- 1.0 Automated eosinophil count 0.6 10*3/uL 0.0-0.3 Automated blood basophil count (count/volume) 0.1 10*3/uL 0.0-0.1 Fibrin D-dimer FEU measurement in platelet poor plasma (mass/volume) - 11/17/16 21:25 Fibrin D-dimer FEU measurement in platelet poor plasma (mass/volume) 0.47 ug/mL 0.00-0.49 Comprehensive metabolic panel - 11/17/16 21:25 Serum or plasma sodium measurement (moles/volume) 139 mmol/L 135-145 Serum or plasma potassium measurement (moles/volume) 3.8 mmol/L 3.6-5.0 Serum or plasma chloride measurement (moles/volume) 105 mmol/L 98-107 Carbon dioxide 23 mmol/L 21-32 Serum or plasma anion gap determination (moles/volume) 11 mmol/L 5-14 Serum or plasma urea nitrogen measurement (mass/volume) 8 mg/dL 7-18 Serum or plasma creatinine measurement (mass/volume) 0.71 mg/dL 0.60-1.30 Serum or plasma urea nitrogen/creatinine mass ratio 11 NRG Serum or plasma creatinine measurement with calculation of estimated glomerular filtration rate > NRG Serum or plasma glucose measurement (mass/volume) 90 mg/dL 70-105 Serum or plasma calcium measurement (mass/volume) 9.2 mg/dL 8.5-10.1 Serum or plasma total bilirubin measurement (mass/volume) 0.2 mg/dL 0.1-1.0 Serum or plasma alkaline phosphatase measurement (enzymatic activity/volume) 54 U/L 40-136 Serum or plasma aspartate aminotransferase measurement (enzymatic activity/volume) 21 U/L 5-34 Serum or plasma alanine aminotransferase measurement (enzymatic activity/volume) 15 U/L 0-55 Serum or plasma protein measurement (mass/volume) 6.9 g/dL 6.4-8.2 Serum or plasma albumin measurement (mass/volume) 4.1 g/dL 3.2-4.5 Serum or plasma troponin i.cardiac measurement (mass/volume) - 11/17/16 21:25 Serum or plasma troponin i.cardiac measurement (mass/volume) < ng/mL <0.30 Serum or plasma lithium measurement (moles/volume) - 11/17/16 21:25 BNP level 11.5 pg/mL <100.0 Complete urinalysis with reflex to culture - 11/17/16 21:30 Urine color determination YELLOW NRG Urine clarity determination SLIGHTLY CLOUDY NRG Urine pH measurement by test strip 6 5-9 Specific gravity of urine by test strip 1.025 1.016-1.022 Urine protein assay by test strip, semi-quantitative NEGATIVE NEGATIVE Urine glucose detection by automated test strip NEGATIVE NEGATIVE Erythrocytes detection in urine sediment by light microscopy 1+ NEGATIVE Urine ketones detection by automated test strip NEGATIVE NEGATIVE Urine nitrite detection by test strip NEGATIVE NEGATIVE Urine total bilirubin detection by test strip NEGATIVE NEGATIVE Urine urobilinogen measurement by automated test strip (mass/volume) NORMAL NORMAL Urine leukocyte esterase detection by dipstick 1+ NEGATIVE Automated urine sediment erythrocyte count by microscopy (number/high power field) [HPF] NRG Automated urine sediment leukocyte count by microscopy (number/high power field) [HPF] NRG Bacteria detection in urine sediment by light microscopy MODERATE NRG Squamous epithelial cells detection in urine sediment by light microscopy 25-50 NRG Crystals detection in urine sediment by light microscopy NONE NRG Casts detection in urine sediment by light microscopy NONE NRG Mucus detection in urine sediment by light microscopy LARGE NRG Complete urinalysis with reflex to culture NO NRG Urine drug screening test - 11/17/16 21:30 Urine phencyclidine detection by screening method NEGATIVE NEGATIVE Urine benzodiazepines detection by screening method NEGATIVE NEGATIVE Urine cocaine detection NEGATIVE NEGATIVE Urine amphetamines detection by screening method NEGATIVE NEGATIVE Urine methamphetamine detection by screening method NEGATIVE NEGATIVE Urine cannabinoids detection by screening method NEGATIVE NEGATIVE Urine opiates detection by screening method NEGATIVE NEGATIVE Urine barbiturates detection NEGATIVE NEGATIVE Screening urine tricyclic antidepressants detection NEGATIVE NEGATIVE Urine methadone detection by screening method NEGATIVE NEGATIVE Urine oxycodone detection NEGATIVE NEGATIVE Urine propoxyphene detection NEGATIVE NEGATIVE CBC - 03/28/19 12:57 WHITE BLOOD CELL COUNT 8.4 Thousand/uL 3.8-10.8 RED BLOOD CELL COUNT 4.73 Million/uL 3.80-5.10 HEMOGLOBIN 13.2 g/dL 11.7-15.5 HEMATOCRIT 41.6 % 35.0-45.0 MCV 87.9 fL 80.0-100.0 MCH 27.9 pg 27.0-33.0 MCHC 31.7 g/dL 32.0-36.0 RDW 13.7 % 11.0-15.0 PLATELET COUNT 290 Thousand/uL 140-400 MPV 11.4 fL 7.5-12.5 ABSOLUTE NEUTROPHILS 5242 cells/uL 0165-7740 ABSOLUTE LYMPHOCYTES 2369 cells/uL 850-3900 ABSOLUTE MONOCYTES 571 cells/uL 200-950 ABSOLUTE EOSINOPHILS 176 cells/uL 15-500 ABSOLUTE BASOPHILS 42 cells/uL 0-200 NEUTROPHILS 62.4 % NRG LYMPHOCYTES 28.2 % NRG MONOCYTES 6.8 % NRG EOSINOPHILS 2.1 % NRG BASOPHILS 0.5 % NRG LIPASE - 03/28/19 12:57 LIPASE 34 U/L 7-60 Encounters ACCT No. Visit Date/Time Discharge Status Pt. Type Provider Facility Loc./Unit Complaint [id number] 12/20/2013 12:39:00 12/20/2013 23:59:59 CLS Outpatient [place] [id number] 04/05/2019 11:30:00 04/05/2019 23:59:59 CLS Outpatient VÍCTOR LEE [facility] [id number] 03/28/2019 11:20:00 Document Registration [id number] 11/17/2016 21:19:00 11/17/2016 22:21:00 DIS Emergency TIMOTHY ZAPATA, CÉSAR Macias [facility] SYNCOPE/CHEST PAIN [id number] 09/09/2016 18:46:00 09/09/2016 20:35:00 DIS Emergency ROSA ELENA ZAPATA, FARHANA Fuentes [facility] TROUBLE BREATHING [id number] 05/08/2016 16:42:00 05/08/2016 18:35:00 DIS Emergency MIGUE ORTIZ APRN [facility] RT SHOULDER,RT ANKLE PAIN [id number] 04/18/2016 21:30:00 04/18/2016 22:47:00 DIS Emergency MIGUE ORTIZ APRN [facility] L SHOULDER AND BACK PAIN [id number] 01/19/2014 07:48:00 01/19/2014 23:59:59 CLS Outpatient BRUCE ZAPATA FACC, MAURY FACLiv CCDS [facility] CARD DYSPNEA,CP [id number] 01/19/2014 08:35:00 01/19/2014 09:18:00 DIS Emergency RISHI BURDICK MD [facility] RIGHT ANKLE PAIN [id number] 04/10/2019 15:59:00 ACT Emergency MIGUE ORTIZ APRN [facility] ABD PAIN/SCHEDULED FOR GALLBLADDER REMOVAL
--- OUTSIDE RECORDS SUMMARY | 2019-04-10 16:32 | XMS REPORT ---
Author Author SHAHRZAD [place] Organization [facility] Address [address] [place] [address] Care Team Providers Care Program Counselor Name Role Phone SHAHRZAD [place] Unavailable PROBLEMS Type Condition ICD9-CM Code [id number] Code Onset Dates Condition Status SNOMED Code Problem Hypothyroid E03.9 Active 33173077 Problem Heart murmur R01.1 Active 57235018 Problem Other headache syndrome G44.89 Active 681028652 Problem Other constipation K59.09 Active 945894955 Problem Gastroesophageal reflux disease without esophagitis K21.9 Active 445250128 Problem Acute upper respiratory infection, unspecified J06.9 Active 170997459 Problem History of gestational diabetes Z86.32 Active 946820393 Problem Weight gain R63.5 Active 4176277 ALLERGIES Unknown Allergies SOCIAL HISTORY No smoking Hx information available PLAN OF CARE VITAL SIGNS MEDICATIONS Unknown Medications RESULTS No Results PROCEDURES No Known procedures IMMUNIZATIONS No Known Immunizations
--- OUTSIDE RECORDS SUMMARY | 2019-04-10 16:32 | XMS REPORT ---
Author Author BRANDI BUCKNER [facility] eClinical[employer] Address Unknown Phone Unavailable Care Team Providers Care Kitchen Runner Name Role Phone BRANDI BUCKNER CP Unavailable Allergies, Adverse Reactions, Alerts Substance Reaction Event Type N.K.D.A. Info Not Available Non Drug Allergy Problems Problem Type Condition Code Onset Dates Condition Status Problem Heart murmur R01.1 Active Assessment Dental examination Z01.20 Active Problem Hypothyroid E03.9 Active Medications Medication Code System Code Instructions Start Date End Date Status Dosage [facility] [place] [id number] 5-325 MG Orally every 6 hrs 1 tablet as needed Procedures Procedure Coding System Code Date INTRAORL-PERIAPICAL 1 FILM 26613 CPT-4 D0220 February 04, 2016 BITEWING - SINGLE FILM CPT-4 D0270 February 04, 2016 LTD ORAL EVALUATION - PROBLEM FOCUS CPT-4 D0140 February 04, 2016 PANORAMIC FILM SEE ALSO CODE 89656 CPT-4 D0330 February 04, 2016 Vital Signs Date/Time: February 04, 2016 Blood Pressure Diastolic 59 mmHg Blood Pressure Systolic 107 mmHg Results No Known Results Summary Purpose eClinicalWorks Submission
--- NOTE | 2019-04-10 16:35 | ED Abdominal Pain ---
General Chief Complaint: Abdominal/GI Problems Stated Complaint: ABD PAIN/SCHEDULED FOR GALLBLADDER REMOVAL Nursing Triage Note: PT AMB TO TRIAGE WITH COMPLAINT OF RUQ ABD PAIN. STATES SHE HAD AN ULTRASOUND DONE ON WEDNESDAY AND WAS SCHEDULED TO HAVE HER GALLBLADDER OUT BY DR MACHADO ON April. STATES PAIN HAS WORSENED TODAY ADN WAS UNABLE TO HAVE HER PAIN MEDS FILLED DUE TO BEING DENIED. Sepsis Screen: No Definite Risk Source of Information: Patient Exam Limitations: No Limitations History of Present Illness Date Seen by Provider: Apr 10, 2019 Time Seen by Provider: 16:33 Initial Comments To ER by private vehicle with reports of epigastric/right upper quadrant abdominal pain. This begins afternoon. She had salad for lunch just before 1 PM. No nausea but intense right upper quadrant abdominal pain. Standing up straight worsens the pain. She states that she has a known bad gallbladder, she saw her primary care provider at [facility] in [place] last week for this, had an ultrasound done at [facility] and was told that she had "an infected gallbladder". She is scheduled to have this removed by surgeon Dr. Machado in [facility] on May 04. Denies fevers or chills. Denies vomiting. Timing/Duration: 1-2 Days Severity/Quality: Moderate Location: RUQ, Epigastric Radiation: No Radiation Activities at Onset: None Allergies and Home Medications Allergies Coded Allergies: No Known Drug Allergies (Unverified , 05/08/16) Patient Home Medication List Home Medication List Reviewed: Yes Review of Systems Review of Systems Constitutional: see HPI EENTM: No Symptoms Reported Respiratory: No Symptoms Reported Cardiovascular: See HPI Gastrointestinal: See HPI, Abdominal Pain; Denies Constipated, Denies Diarrhea; Nausea; Denies Vomiting Genitourinary: No Symptoms Reported Musculoskeletal: no symptoms reported Skin: no symptoms reported Psychiatric/Neurological: No Symptoms Reported Endocrine: No Symptoms Reported Past Qicmata-Sxemxq-Ocfsvm Hx Patient Social History Alcohol Use: Denies Use Recreational Drug Use: No Smoking Status: Never a Smoker Recent Foreign Travel: No Contact w/Someone Who Travel: No Recent Infectious Disease Expo: No Recent Hopitalizations: No Physical Abuse: No Sexual Abuse: No Mistreated: No Fear: No Immunizations Up To Date Tetanus Booster (TDap): Less than 5yrs Date of Influenza Vaccine: Jul 28, 2016 Seasonal Allergies Seasonal Allergies: No Past Medical History Surgeries: Yes (heart valve repair-) Cardiac Respiratory: Yes (Hx of asthma when younger) Asthma Cardiac: Yes (valve surgery as a child, murmur) Heart Murmur, Hypertension, Valvular Heart Disease Neurological: No Reproductive Disorders: No Gastrointestinal: No Musculoskeletal: No Endocrine: Yes Hypothyroidsim Cancer: No Psychosocial: No Integumentary: No Blood Disorders: No Adverse Reaction/Blood Tranf: No Family Medical History Heart Disease, Psychiatric Problems, Seizures Physical Exam Vital Signs Vital Signs - First Documented 04/10/19 16:10 Temp 98.0 Pulse 86 Resp 17 B/P (MAP) 114/72 (86) Pulse Ox 96 O2 Delivery Room Air Capillary Refill : Less Than 3 Seconds Height/Weight/BMI Height: 5'5.00" Weight: 210lbs. oz. 95.020177ao; 36.90 BMI Method:Stated General Appearance: WD/WN, no apparent distress Neck: non-tender, full range of motion Respiratory: no respiratory distress, no accessory muscle use Gastrointestinal: normal bowel sounds, soft, tenderness Extremities: normal range of motion, non-tender Neurologic/Psychiatric: alert, normal mood/affect, oriented x 3 Skin: normal color, warm/dry Progress/Results/Core Measures Results/Orders Lab Results Laboratory Tests Test 04/10/19 16:36 Range/Units White Blood Count 8.1 4.3-11.0 10^3/uL Red Blood Count 4.66 4.35-5.85 10^6/uL Hemoglobin 13.1 11.5-16.0 G/DL Hematocrit 41 35-52 % Mean Corpuscular Volume 87 80-99 FL Mean Corpuscular Hemoglobin 28 25-34 PG Mean Corpuscular Hemoglobin Concent 32 32-36 G/DL Red Cell Distribution Width 14.8 H 10.0-14.5 % Platelet Count 315 130-400 10^3/uL Mean Platelet Volume 10.3 7.4-10.4 FL Neutrophils (%) (Auto) 62 42-75 % Lymphocytes (%) (Auto) 29 12-44 % Monocytes (%) (Auto) 6 0-12 % Eosinophils (%) (Auto) 3 0-10 % Basophils (%) (Auto) 0 0-10 % Neutrophils # (Auto) 5.0 1.8-7.8 X 10^3 Lymphocytes # (Auto) 2.3 1.0-4.0 X 10^3 Monocytes # (Auto) 0.5 0.0-1.0 X 10^3 Eosinophils # (Auto) 0.2 0.0-0.3 10^3/uL Basophils # (Auto) 0.0 0.0-0.1 10^3/uL Sodium Level 140 135-145 MMOL/L Potassium Level 3.9 3.6-5.0 MMOL/L Chloride Level 105 98-107 MMOL/L Carbon Dioxide Level 28 21-32 MMOL/L Anion Gap 7 5-14 MMOL/L Blood Urea Nitrogen 14 7-18 MG/DL Creatinine 0.75 0.60-1.30 MG/DL Estimat Glomerular Filtration Rate > 60 BUN/Creatinine Ratio 19 Glucose Level 97 70-105 MG/DL Calcium Level 9.5 8.5-10.1 MG/DL Corrected Calcium 9.6 8.5-10.1 MG/DL Total Bilirubin 0.3 0.1-1.0 MG/DL Aspartate Amino Transf (AST/SGOT) 17 5-34 U/L Alanine Aminotransferase (ALT/SGPT) 12 0-55 U/L Alkaline Phosphatase 49 40-136 U/L Total Protein 6.8 6.4-8.2 GM/DL Albumin 3.9 3.2-4.5 GM/DL Lipase 103 H 8-78 U/L Serum Test, Qualitative NEGATIVE NEGATIVE My Orders Orders - MIGUE ORTIZ APRN Cbc With Automated Diff (04/10/19 16:26) Comprehensive Metabolic Panel (04/10/19 16:26) Lipase (04/10/19 16:26) Hcg,Qualitative Serum (04/10/19 16:26) Ed Iv/Invasive Line Start (04/10/19 16:31) Us Gallbladder [id number] (04/10/19 16:31) Fentanyl Injection (Sublimaze Injection (04/10/19 16:45) Ketorolac Injection (Toradol Injection) (04/10/19 16:45) Medications Given in ED Current Medications Medications Dose Ordered Sig/Kirk Route Start Time Stop Time Status Last Admin Dose Admin Fentanyl Citrate 50 mcg ONCE ONCE IVP 04/10/19 16:45 04/10/19 16:46 DC 04/10/19 16:42 50 MCG Ketorolac Tromethamine 15 mg ONCE ONCE IVP 04/10/19 16:45 04/10/19 16:46 DC 04/10/19 16:42 15 MG Vital Signs/I&O 04/10/19 16:10 Temp 98.0 Pulse 86 Resp 17 B/P (MAP) 114/72 (86) Pulse Ox 96 O2 Delivery Room Air Blood Pressure Mean: 86 Diagnostic Imaging Diagonstic Imaging: Ultrasound Plain Films/CT/US/NM/MRI: abdomen Comments NAME: CELIA RILEY [facility] REC#: [id number] PT STATUS: REG ER : 1985 PHYSICIAN: MIGUE ORTIZ BUILDING RIGGER ADMIT DATE: 04/10/19/ER Draft Date of Exam:04/10/19 US GALLBLADDER [id number] PROCEDURE: US Gallbladder. TECHNIQUE: Multiple real-time grayscale images were obtained over the right upper quadrant in various projections. INDICATION: Right upper quadrant abdominal pain. COMPARISON: None. FINDINGS: The size and echogenicity of the liver is normal. There is no mass or intrahepatic biliary duct dilatation. Portal venous flow is normal. The common bile duct is normal at 3 mm. There is cholelithiasis without cholecystitis. The gallbladder wall appears normal. No pericholecystic fluid is seen. The portions of the pancreas, IVC, aorta, and right kidney are normal. There is no ascites. IMPRESSION: Cholelithiasis without cholecystitis. Dictated on workstation # [id number] Dict: 04/10/191708 Trans: 04/10/191713 AS6 [id number] Interpreted by: DOROTHEA CLINTON Electronically signed by: Departure Communication (Admissions) [id number]-pain is much better after Toradol and fentanyl. Patient would like her gallbladder removed sooner than May 04. I discussed with Dr. Roberts. Patient can see him in his office tomorrow after 9 AM. Impression Primary Impression: Symptomatic cholelithiasis Disposition: 01 HOME, SELF-CARE Condition: Stable Departure-Patient Inst. Decision time for Depature: 17:18 Referrals: [facility] (PCP/Family) Primary Care Physician Patient Instructions: Gallstones Add. Discharge Instructions: 1. Return to ER for any concerns 2. All discharge instructions reviewed with patient and/or family. Voiced understanding. Scripts Hydrocodone/Acetaminophen ([place] 5-325 Tablet) 1 Each Tablet 1 TAB PO Q6H for Pain MDD 10 TABS for 7 Days, #14 TAB Prov: MIGUE ORTIZ APRN 04/10/19 Copy Copies To 1: NILO AMEZQUITA PETER J APRN Apr 10, 2019 16:35
[2019-04-10] MEDS ORDERED: KETOROLAC 30 MG/ML VIAL IVP ONE (16:45)
[2019-04-10] MEDS ORDERED: fentaNYL INJECTION 100 MCG/2 ML AMP IVP ONE (16:45)
[2019-04-10 16:47] LABS: BASOPHILS % (AUTO) 0 % (0-10); EOSINOPHILS # (AUTO) 0.2 10^3/uL (0.0-0.3); EOSINOPHILS % (AUTO) 3 % (0-10); HEMATOCRIT 41 % (35-52); HEMOGLOBIN 13.1 G/DL (11.5-16.0); LYMPHOCYTES # (AUTO) 2.3 X 10^3 (1.0-4.0); LYMPHOCYTES % (AUTO) 29 % (12-44); MEAN CORPUSCULAR HEMOGLOBIN 28 PG (25-34); MEAN CORPUSCULAR HGB CONC 32 G/DL (32-36); MEAN CORPUSCULAR VOLUME 87 FL (80-99); MEAN PLATELET VOLUME 10.3 FL (7.4-10.4); MONOCYTES # (AUTO) 0.5 X 10^3 (0.0-1.0); MONOCYTES % (AUTO) 6 % (0-12); NEUTROPHILS % (AUTO) 62 % (42-75); PLATELET COUNT 315 10^3/uL (130-400); RED CELL DISTRIBUTION WIDTH 14.8 % (10.0-14.5); WHITE BLOOD COUNT 8.1 10^3/uL (4.3-11.0)
[2019-04-10 17:09] LABS: ALANINE AMINOTRANSFERASE 12 U/L (0-55); ALBUMIN 3.9 GM/DL (3.2-4.5); ALKALINE PHOSPHATASE 49 U/L (40-136); BILIRUBIN,TOTAL 0.3 MG/DL (0.1-1.0); BUN/CREATININE RATIO 19; CALCIUM 9.5 MG/DL (8.5-10.1); CARBON DIOXIDE 28 MMOL/L (21-32); CHLORIDE 105 MMOL/L (98-107); CREATININE SERUM 0.75 MG/DL (0.60-1.30); GFR ESTIMATED > 60; GLUCOSE 97 MG/DL (70-105); LIPASE 103 U/L (8-78); POTASSIUM 3.9 MMOL/L (3.6-5.0); SODIUM 140 MMOL/L (135-145); TOTAL PROTEIN 6.8 GM/DL (6.4-8.2)
--- NOTE | 2019-04-10 17:15 | Diagnostic Imaging Report ---
PROCEDURE: US Gallbladder. TECHNIQUE: Multiple real-time grayscale images were obtained over the right upper quadrant in various projections. INDICATION: Right upper quadrant abdominal pain. COMPARISON: None. FINDINGS: The size and echogenicity of the liver is normal. There is no mass or intrahepatic biliary duct dilatation. Portal venous flow is normal. The common bile duct is normal at 3 mm. There is cholelithiasis without cholecystitis. The gallbladder wall appears normal. No pericholecystic fluid is seen. The portions of the pancreas, IVC, aorta, and right kidney are normal. There is no ascites. IMPRESSION: Cholelithiasis without cholecystitis. Dictated by: Dictated on workstation # [id number]
[2019-04-10] MEDS ORDERED: HYDR-4226 PO (17:22)
[2019-04-10 17:36] VITALS: BP 114/72
[2019-04-12] MEDS ORDERED: HYDR-4226 PO (10:16)
== END 2019-04-10 17:35 | disposition home or self-care (01) ==
LOC: EDUNIT# 15:57 → ER 15:59
DX: K80.20 Calculus of gallbladder without cholecystitis without obstruction (principal); J45.909 Unspecified asthma, uncomplicated; I10 Essential (primary) hypertension; E03.9 Hypothyroidism, unspecified; Z82.49 Family history of ischemic heart disease and other diseases of the circulatory system
CPT/HCPCS: 36415; 76705; 80053; 83690; 84703; 85025; 96374; 96375

== ENCOUNTER 2019-04-11 13:42 | Outpatient (CLI) | payer MEDICAID ==
[~2019-04-11] VITALS: Ht 165.1 cm; Wt 95.3 kg
[~2019-04-11 13:42] MED LIST changes: +HYDR-4226 PO
[2019-04-12] MEDS ORDERED: HYDR-4226 PO (10:16)
== END 2019-04-11 14:42 | disposition home or self-care (01) ==
LOC: PREOP 13:42
PROVIDERS: ATTEND Surgery
DX: Z01.818 Encounter for other preprocedural examination (principal)